=== PATIENT | female | born 1970 | race African-American/Black ===

== ENCOUNTER 2018-05-15 21:37 | Emergency (ER) | payer MEDICAID ==
[~2018-05-15] VITALS: Ht 170.2 cm; Wt 80.3 kg
[2018-05-15 22:06] VITALS: BP 121/60
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
[2018-05-15] MEDS ORDERED: HYDROcodone/Acetamin 5/325 tab ORAL ONE (22:30)
[2018-05-15] MEDS ORDERED: IBUPROFEN600 MG ORAL (22:52)
[2018-05-15] MEDS ORDERED: HYDROCODON-ACE1 EA15 ORAL (22:52)
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
[2018-05-15 22:56] VITALS: BP 121/60
--- NOTE | 2018-05-15 22:56 | NUR ---
ER DISCHARGE NOTE: Patient is cleared to be discharged per ERMD, pt is aox4, on room air, with stable vital signs. pt was given dc and prescription instructions, pt was able to verbalize understanding, pt id band removed. pt is able to ambulate with steady gait. pt took all belongings.
--- NOTE | 2018-05-15 22:57 | NUR ---
ED Nurse Note: pt friend will drive her and her kids home
--- NOTE | 2018-05-16 12:53 | Diagnostic Imaging Report ---
Indication: Trauma, pain Technique: 3 views of the right shoulder Comparison: none Findings: No acute fractures. No dislocations. The joint spaces are preserved Impression: Negative
--- NOTE | 2018-05-16 14:33 | Diagnostic Imaging Report ---
Indication: Pain, trauma Technique: 3 views of the cervical spine Comparison: none Findings: No prevertebral soft tissue swelling. There is degenerative disc narrowing at C4-5 and C5-6. Bony alignment is normal. No acute fractures. No dislocations. On AP view, the cervical spine is rotated to the left. Impression: No acute process Minimal degenerative changes, as described
== END 2018-05-15 22:55 | disposition home or self-care (01) ==
LOC: EMR 22:00
DX: S16.1XXA Strain of muscle, fascia and tendon at neck level, initial encounter (principal); S46.911A Strain of unspecified muscle, fascia and tendon at shoulder and upper arm level, right arm, initial encounter; V43.52XA Car driver injured in collision with other type car in traffic accident, initial encounter; Y92.410 Unspecified street and highway as the place of occurrence of the external cause
CPT/HCPCS: 72040

== ENCOUNTER 2018-12-30 21:44 | Emergency (ER) | payer MEDICAID ==
[~2018-12-30] VITALS: Ht 170.2 cm; Wt 79.4 kg
[~2018-12-30 21:44] MED LIST: HYDROCODON-ACE1 EA15 ORAL; IBUPROFEN600 MG ORAL
[2018-12-30] MEDS ORDERED: ASPIR 8181 MG ORAL (21:51)
[2018-12-30] MEDS ORDERED: LEVOTHYROXINE75 MCG ORAL (21:51)
[2018-12-30 22:02] VITALS: BP 121/71
--- NOTE | 2018-12-30 22:04 | NUR ---
ED Nurse Note: Patient walked in to ER c/o abscess on her left pubick area x 1 week. AAO x4, VSS at this time.
[2018-12-30] MEDS ORDERED: Bactrim-DS 1 tab ORAL ONE (23:00)
[2018-12-30] MEDS ORDERED: IBUPROFEN600 MG ORAL (23:04)
[2018-12-30] MEDS ORDERED: BACTRIM DS TAB1 EAC1 ORAL (23:04)
[2018-12-30] MEDS ORDERED: MUPIROCIN22 GM TOPIC (23:04)
--- NOTE | 2018-12-30 23:04 | Emergency Room Report ---
History of Present Illness General Chief Complaint: Skin Rash/Abscess Source: Patient Present Illness HPI Is a 48-year-old female with no significant past medical history. She presents with chief complaint of an abscess to the left suprapubic area. She shaved that area. Now she has a lump there for about a week. A drain but came back again the next day. Is been very painful for last 2 days. No fever chills but no nausea no vomiting. No trauma. Never had this problem before. Denies any other complaint. Pain is 8 out of 10. Worse with palpation. Allergies: Coded Allergies: No Known Allergies (Unverified , 05/15/18) Patient History Past Medical History: see triage record, old chart reviewed Past Surgical History: none Pertinent Family History: none Social History: Denies: smoking Now: No Immunizations: other Reviewed Nursing Documentation: PMH: Agreed; PSxH: Agreed Nursing Documentation-PM Past Medical History: No History, Except For Hx Cardiac Problems: Yes - cva 2017 . hypothyroid Review of Systems Eye: Denies: eye pain, blurred vision ENT: Denies: ear pain, nose congestion, throat swelling Respiratory: Denies: cough, shortness of breath Cardiovascular: Denies: chest pain, palpitations Gastrointestinal: Denies: abdominal pain, diarrhea, nausea, vomiting Musculoskeletal: Denies: back pain, joint pain Skin: Denies: rash Neurological: Denies: headache, numbness Endocrine: Denies: increased thirst, increased urine Hematologic/Lymphatic: Denies: easy bruising All Other Systems: negative except mentioned in HPI Physical Exam Vital Signs Date Time Temp Pulse Resp B/P (MAP) Pulse Ox O2 Delivery O2 Flow Rate FiO2 12/30/18 21:47 98.4 96 14 121/71 (88) 96 Room Air Vitals normal Sp02 EP Interpretation: reviewed, normal General Appearance: well appearing, no apparent distress, alert Head: normocephalic, atraumatic Eyes: bilateral eye PERRL, bilateral eye EOMI ENT: hearing grossly normal, normal pharynx Neck: full range of motion, supple, no meningismus Respiratory: chest non-tender, lungs clear, normal breath sounds Cardiovascular #1: regular rate, rhythm, no murmur Gastrointestinal: normal bowel sounds, non tender, no mass, no organomegaly, no bruit, non-distended Genitourinary: other - Left suprapubic area: There is a fluctuant area of 2 cm. Tender to palpation. Musculoskeletal: back normal, gait/station normal, normal range of motion Neurologic: alert, oriented x3 Psychiatric: mood/affect normal Procedures Incision and Drainage Incision and Drainage : Consent: Verbal Site: Left suprapubic area Blade Size: 11 I & D Procedure: betadine prep Wound Location: pelvis Anesthesia: 1% Lidocaine Volume Anesthetic (ccs): 3 Patient Tolerated: Well Complications: None Progress Moderate amount of pus expressed after I&D. Area probed for loculations. Wound dressing done. Patient told procedure without any problem. Medical Decision Making Diagnostic Impression: Primary Impression: Abscess ER Course Patient with abscess of the suprapubic area. No deep infection. No necrotizing fasciitis. Will discharge home. Last Vital Signs Date Time Temp Pulse Resp B/P (MAP) Pulse Ox O2 Delivery O2 Flow Rate FiO2 12/30/18 22:02 98.4 14 121/71 96 Room Air 12/30/18 21:47 96 Status: improved Disposition: HOME, SELF-CARE Condition: Stable Scripts Mupirocin* (MUPIROCIN*) 22 Gm Oint...g. 1 APPLIC TOPIC THREE TIMES A DAY, #22 GM Prov: James Oliver MD 12/30/18 Ibuprofen* (MOTRIN*) 600 Mg Tablet 600 MG ORAL THREE TIMES A DAY, #30 TAB 0 Refills Prov: James Oliver MD 12/30/18 Trimethoprim/Sulfamethoxazole 160/800* (BACTRIM DS TABLET*) 1 Each Tablet 1 TAB ORAL Q12H, #14 TAB 0 Refills Prov: James Oliver MD 12/30/18 [facility]errals: [facility],REFERRING (PCP) Patient Instructions: Abscess Additional Instructions: Clean area with hydrogen peroxide first. Apply antibiotic ointment. Follow-up in 2 to 3 days for recheck. Either with your doctor or come back here. Return if worse. James Oliver MD Dec 30, 2018 23:04
[2018-12-30 23:14] VITALS: BP 121/71
--- NOTE | 2018-12-30 23:14 | NUR ---
ED Nurse Note: Pt cleared by ERMD for discharge. DC instructions/prescription was given and explained to pt and verbalized understanding of teachings. All medical deviecs such as ID band removed. Pt is AAO x4, ambulatory and left with all personal belongings.
== END 2018-12-30 23:41 | disposition home or self-care (01) ==
LOC: EMR 22:12
DX: L02.219 Cutaneous abscess of trunk, unspecified (principal); E03.9 Hypothyroidism, unspecified; Z86.73 Personal history of transient ischemic attack (TIA), and cerebral infarction without residual deficits
CPT/HCPCS: 10060; Z7502; 99282

== ENCOUNTER 2020-03-27 14:34 | Emergency (ER) | payer MEDICAID, OTHER ==
[~2020-03-27] VITALS: Ht 170.2 cm; Wt 81.6 kg
[~2020-03-27 14:34] MED LIST changes: +ASPIR 8181 MG ORAL; +BACTRIM DS TAB1 EAC1 ORAL; +LEVOTHYROXINE75 MCG ORAL; +MUPIROCIN22 GM TOPIC
--- NOTE | 2020-03-27 15:23 | Emergency Room Report ---
History of Present Illness General Chief Complaint: Animal Bite Source: Patient Present Illness HPI 50-year-old female presents to the emergency department complaining of 8 out of 10 severity localized pain, swelling and tenderness to the posterior aspect of the left ear progressive over 3 days. Patient reports she primarily noticed a lump when she was washing her hair. She denies fevers or chills. She denies ear pain, changes in hearing/ringing of the ears. Patient denies neck pain/stiffness. She denies taking any medications for her symptoms. Patient reports that squeezing or palpating the affected area will exacerbate her pain. She reports history of hypothyroidism and CVA. 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 hypothyroid Review of Systems All Other Systems: negative except mentioned in HPI Physical Exam Vital Signs Date Time Temp Pulse Resp B/P (MAP) Pulse Ox O2 Delivery O2 Flow Rate FiO2 03/27/20 14:40 98.2 106 18 136/77 (96) 98 Room Air Sp02 EP Interpretation: reviewed, normal General Appearance: no apparent distress, alert, GCS 15, non-toxic Head: normocephalic, atraumatic Eyes: bilateral eye normal inspection, bilateral eye PERRL ENT: hearing grossly normal, normal voice, other - 1 cm abscess to the posterior aspect of the left ear. Erythema, warmth and palpable fluctuance. Neck: full range of motion Respiratory: lungs clear, normal breath sounds, speaking full sentences Cardiovascular #1: regular rate, rhythm Musculoskeletal: normal range of motion, gait/station normal, non-tender Neurologic: alert, motor strength/tone normal, oriented x3, sensory intact, responsive, speech normal Psychiatric: judgement/insight normal Skin: other - 1 cm abscess to the posterior aspect of the left ear. Erythema, warmth and palpable fluctuance. Lymphatic: no adenopathy Procedures Incision and Drainage Incision and Drainage : Consent: Verbal Site: posterior left ear Blade Size: 23g needle Wound Location: head - post. Left ear Wound's Depth, Shape: superficial Wound Length (cm): 1 Wound Explored: contaminated - thick purulent dc was expressed Irrigated w/ Saline (ccs): 10 Splint Applied?: No Sling Applied?: No Patient Tolerated: Well Complications: None Medical Decision Making PA Attestation Dr. Prajapati Is my supervising Physician whom patient management has been discussed with. Diagnostic Impression: Primary Impression: Abscess ER Course 50-year-old female presents to the emergency department complaining of 8 out of 10 severity localized pain, swelling and tenderness to the posterior aspect of the left ear progressive over 3 days. Patient reports she primarily noticed a lump when she was washing her hair. She denies fevers or chills. She denies ear pain, changes in hearing/ringing of the ears. Patient denies neck pain/stiffness. She denies taking any medications for her symptoms. Patient reports that squeezing or palpating the affected area will exacerbate her pain. She reports history of hypothyroidism and CVA. Ddx considered but are not limited to sebaceous cyst, cellulitis, abscess, cystic acne, necrotizing fasciitis, insect bite. Vital signs: are WNL, pt. is afebrile H&PE are most consistent with 1 cm abscess to the posterior aspect of the left ear. Erythema, warmth and palpable fluctuance. ORDERS: none required at this time, the diagnosis is clinical ED INTERVENTIONS: - Needle aspiration w. 23g needle DISCHARGE: At this time pt. is stable for d/c to home. Will provide printed patient care instructions, and any necessary prescriptions. Care plan and follow up instructions have been discussed with the patient prior to discharge. Last Vital Signs Date Time Temp Pulse Resp B/P (MAP) Pulse Ox O2 Delivery O2 Flow Rate FiO2 03/27/20 14:40 98.2 106 18 136/77 (96) 98 Room Air Disposition: HOME, SELF-CARE Condition: Stable Scripts Mupirocin* (MUPIROCIN*) 22 Gm Oint...g. 1 APPLIC TOPIC THREE TIMES A DAY, #22 GM Prov: Delia Cervantes 03/27/20 Trimethoprim/Sulfamethoxazole 160/800* (BACTRIM DS TABLET*) 1 Each Tablet 1 TAB ORAL TWICE A DAY for 7 Days, #14 TAB Prov: Delia Cervantes 03/27/20 Patient Instructions: Abscess, [id number] Additional Instructions: Take medications as directed. Follow up with a Primary Care Provider in 3-5 days, even if your symptoms have resolved. Return sooner to ED if new symptoms occur, or current symptoms become worse. - Please note that this Emergency Department Report was dictated using [employer] lighter technology software, occasionally this can lead to erroneous entry secondary to interpretation by the dictation equipment. Delia Cervantes Mar 27, 2020 15:23
[2020-03-27] MEDS ORDERED: MUPIROCIN22 GM TOPIC (15:25)
[2020-03-27] MEDS ORDERED: BACTRIM DS TAB1 EAC1 ORAL (15:25)
[2020-03-27 15:30] VITALS: BP 132/73
--- NOTE | 2020-03-27 15:30 | NUR ---
ED Nurse Note: Pt walked into ED for L ear spider bite. She states she woke up this morning with it, and doesn't know when she got it. Pt is alert and ox4, amb. She has no drainage or bleeding.
== END 2020-03-27 16:00 | disposition home or self-care (01) ==
LOC: EMR 15:19
DX: H60.02 Abscess of left external ear (principal); E03.9 Hypothyroidism, unspecified; Z86.73 Personal history of transient ischemic attack (TIA), and cerebral infarction without residual deficits
CPT/HCPCS: 10060; Z7502; 99282